=== PATIENT | male | born 1995 | race Asian ===

== ENCOUNTER 2016-07-21 10:29 | Emergency (ER) | payer SELFPAY ==
[~2016-07-21] VITALS: Ht 175.3 cm; Wt 90.0 kg
--- NOTE | 2016-07-21 10:44 | PD ---
HPI Chief Complaint: ENT Complaint Time Seen by Provider: 10:44 Travel History International Travel<30 days: No Contact w/Intl Traveler<30days: No Traveled to known affect area: No History of Present Illness HPI 20-year-old male presents to the emergency Department with complaint of nasal congestion, cough, sore throat since yesterday. Sore throat is main complaint. Denies lump in throat, difficulty swallowing, unusual drooling. Reports painful swallowing. Reports occasional cough. Reports headache. Denies fever , vomiting. Denies ear pain. Denies chest pain or shortness of breath. Has not taken any medications or tried any treatments to the [facility] symptoms. No known allergies. Has no other medical complaints. No other modifying factors or associated signs or symptoms. [facility] Social History Tobacco Use: No Allergies-Medications (Allergen,Severity, Reaction): Coded Allergies: No Known Allergies (Unverified , 07/21/16) Review of Systems Except as stated in HPI: all other systems reviewed are Neg Physical Exam Narrative GENERAL: Well-nourished, well-developed male patient, in no acute distress ; afebrile, nontoxic-appearing SKIN: Warm and dry. No rash. HEAD: Atraumatic. Normocephalic. EYES: Pupils equal and round. No scleral icterus. No injection or drainage. ENT: Mucosa pink and moist. No erythema or exudates. No uvular edema. No uvular , palatal, or tonsillar deviation. Airway patent. EARS: Bilateral pinnae and external canals appear within normal limits. Bilateral tympanic membranes without erythema, dullness or perforation. NECK: Trachea midline. No lymphadenopathy. CARDIOVASCULAR: Regular rate and rhythm. No murmur appreciated. bRESPIRATORY: No accessory muscle use. Clear to auscultation. Breath sounds equal bilaterally. No retractions or tachypnea. GASTROINTESTINAL: Abdomen soft, non-tender, nondistended. Hepatic and splenic margins not palpable. Bowel sounds are active 4 quadrants. MUSCULOSKELETAL: No obvious deformities. No clubbing. No cyanosis. No edema. NEUROLOGICAL: Awake and alert. Oriented 3. No obvious cranial nerve deficits. Motor grossly within normal limits. Normal speech. Moves all extremities. 5/5 strength to all extremities. PSYCHIATRIC: Appropriate mood and affect; insight and judgment normal. Data Data Last Documented VS Vital Signs Date Time Temp Pulse Resp B/P Pulse Ox O2 Delivery O2 Flow Rate FiO2 6/6/17 10:52 98.2 95 18 140/92 98 Room Air Orders Ibuprofen (Motrin) (07/21/16 10:45) Group A Rapid Strep Screen (07/21/16 10:44) Strep Culture (Group A) (07/21/16 10:40) MDM Medical Decision Making Medical Screen Exam Complete: Yes Emergency Medical Condition: Yes Medical Record Reviewed: Yes Differential Diagnosis Viral pharyngitis, viral illness, strep pharyngitis, less likely peritonsillar abscess Narrative Course 20-year-old male with cough/cold symptoms. Sore throat is main complaint. Patient is afebrile nontoxic-appearing. Denies fever, vomiting. Ibuprofen and rapid strep ordered. 1113: Rapid strep negative. Discussed viral illness and symptomatic management. Ibuprofen, Magic mouthwash, Tessalon Perles prescribed for home. Patient verbalizes understanding and agreement with treatment plan. Patient is medically cleared and stable for discharge. Discussed reasons to return to the emergency department. Instructed patient to follow up with primary care provider. Patient agrees with treatment plan. The patients vital signs are stable and the patient is stable for outpatient follow-up and treatment. Patient discharged home, stable and in no acute distress. Diagnosis Primary Impression: Viral illness Referrals: Primary Care Physician Patient Instructions: Cold Symptoms (ED), General Instructions, Safe Use of Cough and Cold Medicines (ED) Departure Forms: Tests/Procedures, Work Release Enter return to work date: Jul 23, 2016 Additional Instructions: Ibuprofen or Tylenol as instructed and as needed for fever/pain Fovn-aok-xtrayta cough and cold medications as directed and as needed for symptom management Get plenty of sleep/rest Drink plenty of fluids to prevent dehydration; popsicles and Gatorade Use an air humidifier/turn off ceiling fans Follow-up with primary care provider Return immediately to the emergency department with worsening of symptoms Med/Other Pt SpecificInfo: Prescription(s) given Scripts Mometasone Nasal Victoria (Nasonex Nasal Victoria)50 Mcg/Act Naspr2 Victoria EACH NARE DAILY PRN (NASAL CONGESTION) #1 BOTTLE Ref 0 Prov:Masha Art [employer] 07/21/16 [id number]-Opy-Alum-Simeth Liq (Magic Mouthwash Pediatric/Adult Liq)60 Ml Susp5 Ml SWISH-SPIT Q3HR PRN (SORE THROAT) #60 ML Ref 0 Each 5mL contains: Diphenydramine 4.5mg, Viscous Lidocaine 2% 10mg, Maalox Advanced Regular Strength 2.7ml Prov:Masha Art 07/21/16 Benzonatate (Tessalon Perles)100 Mg [id number] Mg PO TID PRN (COUGH) #10 CAP Ref 0 Prov:Masha Art 07/21/16 Ibuprofen 800 Mg [id number] Mg PO Q6HR PRN (PAIN) #30 TAB Ref 0 Prov:Masha Art 07/21/16 Disposition: 01 DISCHARGE HOME Condition: Stable Masha Art Jul 21, 2016 10:44
[2016-07-21] MEDS ORDERED: IBUPROFEN 800 MG TAB PO ONE (10:45)
[2016-07-21 10:52] VITALS: BP 140/92; PULSE 95; RESP 18; TEMP 98.2; O2SAT 98
[2016-07-21] MEDS ORDERED: MAGICPED SWISH-SPIT (11:15)
[2016-07-21] MEDS ORDERED: IBUP800T23 PO (11:15)
[2016-07-21] MEDS ORDERED: MOME17I EACH NARE (11:15)
[2016-07-21] MEDS ORDERED: BENZ100 PO (11:15)
== END 2016-07-21 11:34 | disposition home or self-care (01) ==
LOC: NEPK 10:29
DX: B34.9 Viral infection, unspecified (principal); R07.0 Pain in throat; R09.81 Nasal congestion; R05 Cough
CPT/HCPCS: 87081; 87880; 99284